=== PATIENT | female | born 1970 | race American Indian/Alaskan Native ===

== ENCOUNTER 2018-05-16 19:49 | Emergency (ER) | payer MEDICARE, MEDICAID ==
[2018-05-16 20:30] VITALS: RESP 18; TEMP 97.9; O2SAT 100
[2018-05-16] MEDS ORDERED: Sodium Chloride 0.9% 1,000 ML IV STA (21:53)
[2018-05-16] MEDS ORDERED: Morphine 4 MG/ML VIAL ONE ×2 (22:06→22:35)
--- NOTE | 2018-05-16 22:08 | ED PDOC ---
Addendum entered and electronically signed by Micheline Rios PA 05/20/18 10:30: ED Course And Treatment - Laboratory Results Result Diagrams: 05/16/18 23:40 05/16/18 23:40 O2 Sat by Pulse Oximetry: 100 (RA) Progress Note: Call placed to patient regarding positive urine culture, unable to leave messages mailbox is full. Previous attempt made regarding radiology finding. Certified letter will be sent. Micheline Cota made aware. Addendum entered and electronically signed by Dianne Chandler PA-C 05/18/18 14:34: Addendum Addendum: 05/18/18 14:31 1st attempt to contact pt unsuccessful. Unable to leave message as mailbox is full. Pt needs gynecological followup secondary to official CT read showing large cyst. Official Radiologist Read CT Abd/Pelvis: FINDINGS: LOWER THORAX: There is subsegmental atelectasis in the right lung base. The visualized left lung is clear. LIVER: Normal in size with homogeneous enhancement. No gross lesion or ductal dilatation. GALLBLADDER AND BILE DUCTS: Well distended. No calcified gallstones, wall thickening or pericholecystic fluid. PANCREAS: Normal in size with homogeneous enhancement. No gross lesion or ductal dilatation. SPLEEN: Normal in size and appearance. ADRENALS: No discrete nodule. KIDNEYS AND URETERS: Normal in size with homogeneous enhancement. No hydronephrosis. No solid mass. VASCULATURE: No aortic aneurysm. BOWEL: Evaluation of the bowel is limited in the absence of oral contrast. The small bowel loops are normal in caliber. There is mild sigmoid diverticulosis without CT evidence for acute diverticulitis. No bowel wall thickening or obstruction. APPENDIX: Normal appendix. PERITONEUM: No free fluid. No free air. LYMPH NODES: No enlarged lymph nodes. BLADDER: Well distended and normal in appearance. REPRODUCTIVE: The uterus is surgically absent. There is a 3.5 x 8.0 x 9.1 cm lobular cystic mass in the left adnexa. BONES: No acute fracture. Within normal limits for the patient's age. OTHER FINDINGS: None. IMPRESSION: No acute abdominal or pelvic abnormality. 3.5 x 8.0 x 9.1 cm lobular cyst in the left adnexa, the differential considerations include ovarian cyst, cystadenoma and cystadenocarcinoma. Given large size of the cyst, gynecologic consult is recommended and if clinically indicated MRI of the pelvis without and with intravenous contrast may be performed. Original Note: HPI: General Adult Time Seen by Provider: 05/16/18 21:32 Chief Complaint (Nursing): Flu-like Symptoms Chief Complaint (Provider): Flu-like Symptoms History Per: Patient History/Exam Limitations: no limitations Onset/Duration Of Symptoms: Hrs Current Symptoms Are (Timing): Still Present Additional Complaint(s): 47 y/o female with a PMHx of HTN, borderline DM and a history of DVT in the left leg presents to the ED complaining of complete body cramps and nausea, onset earlier today. Patient states she believes her symptoms may be associated with food poisoning. PMD: In [place] Past Medical History Reviewed: Historical Data, Nursing Documentation, Vital Signs Vital Signs: Last Vital Signs Temp 97.9 F 05/16/18 20:30 Pulse 117 H 05/16/18 20:30 Resp 18 05/16/18 20:30 BP 202/128 H 05/16/18 20:30 Pulse Ox 100 05/16/18 20:30 - Medical History PMH: HTN - Surgical History Other surgeries: Hysterectomy, myomectomy and a meniscus repair - Family History Family History: States: Unknown Family Hx - Allergies Allergies/Adverse Reactions: Allergies Allergy/AdvReac Type Severity Reaction Status Date / Time No Known Allergies Allergy Verified 05/16/18 20:28 Review of Systems ROS Statement: Except As Marked, All Systems Reviewed And Found Negative Constitutional: Positive for: Other (Complete myalgia) Gastrointestinal: Positive for: Nausea Physical Exam - Reviewed Nursing Documentation Reviewed: Yes Vital Signs Reviewed: Yes - Physical Exam Appears: Positive for: In Acute Distress - Laboratory Results Result Diagrams: 05/16/18 23:40 05/16/18 23:40 - ECG ECG Rhythm: Positive for: Sinus Tachycardia (with PACs) Rate: 103 O2 Sat by Pulse Oximetry: 100 (RA) Pulse Ox Interpretation: Normal Medical Decision Making Medical Decision Making: Time: 2205 Plan: -- CMP -- CBC with Differentials -- PTT -- Morphine 4 mg IV -- Sodium Chloride IV 200 mls/hr -- Zofran Inj 4 mg IV -- Blood Culture -- Urine C & S -- Urinalysis Time: 1:27 -White blood cell count: 14 Time: 2:22 -patient refusing CAT scan, asking for pain medication, expressing drug seeking behavior Time: 4:19 -patient agreeable to CAT scan Time: 4:09 CT abd/pelvis COMMENTS: Enlarged left ovary. Left ovarian cyst measuring 8.3x5.1 cm. The liver is of uniform attenuation without mass or defect. There is no intra or extrahepatic biliary ductal dilatation. The spleen is normal. The gallbladder is within normal limits. The pancreas is of normal contour and attenuation characteristics. There is no evidence of adrenal mass. Distended bladder. Both kidneys demonstrate prompt and equal nephrograms. The kidneys are normal in size, shape and configuration. There is no evidence of renal or ureteral mass. No renal or ureteral calculi are identified. There is no hydroureter or hydronephrosis. No evidence for appendicitis. There is no bowel wall thickening. No evidence for small or large bowel obstruction. There is no evidence of abdominal ascites or lymphadenopathy. There is no evidence of intrinsic or extrinsic bladder mass. There is no pelvic ascites or lymphadenopathy. Bilateral basilar subsegmental atelectatic pulmonary changes. Images of the lung bases show no evidence of pleural or parenchymal mass. There are no pleural effusions. The bony structures are free of lytic or blastic lesions. IMPRESSION: Left ovarian cyst. Distended bladder. Time: 4:54 -noted distended bladder on CAT scan, however patient has urinated freely since then __ Scribe Attestation: Documented by Cher Kang, acting as a scribe for Nik Hoang MD. Provider Scribe Attestation: All medical record entries made by the Scribe were at my direction and personally dictated by me. I have reviewed the chart and agree that the record accurately reflects my personal performance of the history, physical exam, medical decision making, and the department course for this patient. I have also personally directed, reviewed, and agree with the discharge instructions and disposition. Disposition - Clinical Impression Clinical Impression: Hypertension, Abdominal pain - Disposition Disposition: Routine/Home Disposition Time: 04:43 Condition: IMPROVED Additional Instructions: follow up with your primary doctor in 1-2 days return to the ED with any worsening or concerning symptoms Instructions: High Blood Pressure in Adults, Viral Gastroenteritis, Adult (DC), Stomach Ache and Stomach Upset Forms: [employer] (Gabonese)
[2018-05-16 22:12] VITALS: PULSE 103
[2018-05-16] MEDS ORDERED: Iohexol 240 (50 ml) PO ONE (22:41)
[2018-05-16 23:44] LABS: BASO # 0.1 K/uL (0.0-0.2); BASO % 0.7 % (0.0-2.0); EOS % 0.3 % (0.0-4.0); HEMOGLOBIN 14.4 g/dL (12.0-16.0); LYMPH # 2.4 K/uL (1.0-4.3); LYMPH % 16.9 % (20.0-40.0); MEAN CELL VOLUME 69.3 fl (81.0-99.0); MEAN CORPUSCULAR HEMOGLOBIN 21.5 pg (27.0-31.0); MEAN CORPUSCULAR HGB CONC 31.1 g/dL (33.0-37.0); MONO # 0.6 K/uL (0.0-0.8); NEUT # 11.2 K/uL (1.8-7.0); NEUT % 78.1 % (50.0-75.0); NRBC % 0.1 % (0.0-0.0); RBC 6.69 Mil/uL (3.80-5.20); RED CELL DISTRIBUTION WIDTH 16.4 % (11.5-14.5); WHITE BLOOD COUNT 14.4 K/uL (4.8-10.8)
[2018-05-16 23:46] LABS: SQUAMOUS EPITHIAL 2 /hpf (0-5); URINE BILIRUBIN NEGATIVE (NEGATIVE); URINE BLOOD NEGATIVE (NEGATIVE); URINE CLARITY SLIGHTY-CLOUDY (Clear); URINE COLOR YELLOW (YELLOW); URINE GLUCOSE (UA) NEG (Normal); URINE LEUKOCYTE ESTERASE NEG Leu/uL (Negative); URINE PROTEIN NEGATIVE (NEGATIVE); URINE UROBILINOGEN 0.2-1.0 mg/dL (0.2-1.0)
[2018-05-16 23:59] LABS: ALBUMIN 4.1 g/dL (3.5-5.0); ALT/SGPT 32 U/L (9-52); AST/SGOT 31 U/L (14-36); BLOOD UREA NITROGEN 10 mg/dl (7-17); CALCIUM 9.5 mg/dL (8.4-10.2); GFR NON-AFRICAN AMERICAN > 60
[2018-05-17] MEDS ORDERED: Iohexol 240 (50 ml) ONE (00:27)
[2018-05-17] MEDS ORDERED: Iohexol 300 100 ML IJ ONE ×2 (02:15→03:21)
[2018-05-17] MEDS ORDERED: Sodium Chloride 0.9% 0 ML IV ONE (02:15)
[2018-05-17] MEDS ORDERED: Sodium Chloride 0.9% 50 ML IV ONE (03:21)
[2018-05-17 09:29] VITALS: BP 166/93
--- NOTE | 2018-05-17 14:43 | CT ---
Date of service: 05/17/2018 PROCEDURE: CT Abdomen and Pelvis with contrast HISTORY: Abdominal pain COMPARISON: None. TECHNIQUE: CT scan of the abdomen and pelvis was performed after administration of intravenous contrast. Oral contrast was not administered. Coronal and sagittal reformatted images were obtained. Contrast dose: 95 mL Omnipaque 300 Radiation dose: Total exam DLP = 810.48 mGy-cm. This CT exam was performed using one or more of the following dose reduction techniques: Automated exposure control, adjustment of the mA and/or kV according to patient size, and/or use of iterative reconstruction technique. FINDINGS: LOWER THORAX: There is subsegmental atelectasis in the right lung base. The visualized left lung is clear. LIVER: Normal in size with homogeneous enhancement. No gross lesion or ductal dilatation. GALLBLADDER AND BILE DUCTS: Well distended. No calcified gallstones, wall thickening or pericholecystic fluid. PANCREAS: Normal in size with homogeneous enhancement. No gross lesion or ductal dilatation. SPLEEN: Normal in size and appearance. ADRENALS: No discrete nodule. KIDNEYS AND URETERS: Normal in size with homogeneous enhancement. No hydronephrosis. No solid mass. VASCULATURE: No aortic aneurysm. BOWEL: Evaluation of the bowel is limited in the absence of oral contrast. The small bowel loops are normal in caliber. There is mild sigmoid diverticulosis without CT evidence for acute diverticulitis. No bowel wall thickening or obstruction. APPENDIX: Normal appendix. PERITONEUM: No free fluid. No free air. LYMPH NODES: No enlarged lymph nodes. BLADDER: Well distended and normal in appearance. REPRODUCTIVE: The uterus is surgically absent. There is a 3.5 x 8.0 x 9.1 cm lobular cystic mass in the left adnexa. BONES: No acute fracture. Within normal limits for the patient's age. OTHER FINDINGS: None. IMPRESSION: No acute abdominal or pelvic abnormality. 3.5 x 8.0 x 9.1 cm lobular cyst in the left adnexa, the differential considerations include ovarian cyst, cystadenoma and cystadenocarcinoma. Given large size of the cyst, gynecologic consult is recommended and if clinically indicated MRI of the pelvis without and with intravenous contrast may be performed. The final report is tagged to the PA review folder.
== END 2018-05-17 05:10 | disposition home or self-care (01) ==
LOC: H.ER 19:49
DX: R10.9 Unspecified abdominal pain (principal); I10 Essential (primary) hypertension
CPT/HCPCS: 74177; 80053; 81003; 85025; 87040; 87086; 87181; 96374; 96375; 96376; 99283; J1885; J2270; J2405; J7030; Q9966; Q9967